=== PATIENT | male | born 1970 | race Caucasian/White ===

== ENCOUNTER 2019-06-25 09:45 | Emergency (ER) | payer BC ==
[2019-06-25 09:54] VITALS: BP 111/75
[2019-06-25 10:15] LABS: Influenza A Molecular NEGATIVE (Negative); Influenza B Molecular NEGATIVE (Negative)
--- NOTE | 2019-06-25 10:47 | UC ---
Throat Pain/Nasal Loi HPI - HPI Summary HPI Summary: 48-year-old male comes in with a chief complaint of sore throat fevers and some congestion. Been on for several days. Does hurt to swallow. His son has strep throat. No complaint of any abdominal pain. Patient developed a diffuse erythematous slightly raised rash today. - History of Current Complaint Chief Complaint: UCGeneralIllness Stated Complaint: RASH Time Seen by Provider: 06/25/19 09:55 Pain Intensity: 0 - Allergies/Home Medications Allergies/Adverse Reactions: Allergies Allergy/AdvReac Type Severity Reaction Status Date / Time bacitracin Allergy Rash Verified 06/25/19 09:55 [From Triple Antibiotic] neomycin Allergy Rash Verified 06/25/19 09:55 [From Triple Antibiotic] polymyxin B Allergy Rash Verified 06/25/19 09:55 [From Triple Antibiotic] povidone-iodine Allergy Rash Verified 06/25/19 09:55 [From Betadine] soap [From Betadine] Allergy Rash Verified 06/25/19 09:55 PMH/Surg Hx/FS Hx/Imm Hx Previously Healthy: Yes - Surgical History Surgical History: Yes Surgery Procedure, Year, and Place: knees shoulder - Family History Known Family History: Positive: Non-Contributory - Social History Alcohol Use: Weekly Substance Use Type: None Smoking Status (MU): Never Smoked Tobacco Review of Systems All Other Systems Reviewed And Are Negative: Yes Constitutional: Positive: Fever, Other - SEE HPI Skin: Positive: Other - SEE HPI Eyes: Positive: Negative ENT: Positive: Sore Throat, Nasal Discharge, Sinus Congestion Respiratory: Positive: Negative Cardiovascular: Positive: Negative Gastrointestinal: Positive: Negative Motor: Positive: Negative Neurovascular: Positive: Negative Musculoskeletal: Positive: Negative Neurological: Positive: Negative Psychological: Positive: Negative Is Patient Immunocompromised?: No Physical Exam Triage Information Reviewed: Yes Appearance: No Pain Distress, Well-Nourished, Ill-Appearing - MILD Vital Signs: Initial Vital Signs Temp 99.3 F 06/25/19 09:51 Pulse 94 06/25/19 09:51 Resp 18 06/25/19 09:51 BP 111/75 06/25/19 09:51 Pulse Ox 100 06/25/19 09:51 Vital Signs Reviewed: Yes Eye Exam: Normal Eyes: Positive: Conjunctiva Clear ENT: Positive: Pharyngeal erythema, Nasal congestion, Nasal drainage, TMs normal Neck: Positive: Supple Respiratory: Positive: Lungs clear, Normal breath sounds, No respiratory distress Cardiovascular: Positive: RRR Musculoskeletal: Positive: Strength Intact, ROM Intact Neurological: Positive: Alert, Muscle Tone Normal Psychological: Positive: Normal Response To Family, Age Appropriate Behavior Skin: Positive: Other - Erythematous slightly raised blanching rash diffusely. Throat Pain/Nasal Course/Dx - Differential Dx/Diagnosis Provider Diagnosis: Strep pharyngitis with scarlet fever Discharge ED - Sign-Out/Discharge Documenting (check all that apply): Patient Departure All imaging exams completed and their final reports reviewed: No Studies - Discharge Plan Condition: Stable Disposition: HOME Prescriptions: Amoxicillin PO (*) [Amoxicillin 500 MG CAP*] 500 mg PO Q12H #20 cap Patient Education Materials: Scarlet Fever (ED) Referrals: Kavon Block MD [Primary Care Provider] - Additional Instructions: FOLLOW UP WITH YOUR DOCTOR IF NOT COMPLETELY IMPROVED. GET REEVALUATED SOONER IF NOT IMPROVED OR WORSE OR ANY QUESTIONS OR CONCERNS. - Billing Disposition and Condition Condition: STABLE Disposition: Home
== END 2019-06-25 10:45 | disposition home or self-care (01) ==
LOC: UCEAST 09:45
DX: J02.0 Streptococcal pharyngitis (principal); A38.9 Scarlet fever, uncomplicated; R09.81 Nasal congestion; Z88.1 Allergy status to other antibiotic agents; Z88.8 Allergy status to other drugs, medicaments and biological substances; Z91.09 Other allergy status, other than to drugs and biological substances
CPT/HCPCS: 87651; 99212; G0463